=== PATIENT | female | born 1965 | race Caucasian/White ===

== ENCOUNTER 2017-12-12 16:38 | Emergency (ER) | payer OTHER ==
[~2017-12-12] VITALS: Ht 162.6 cm; Wt 96.6 kg
[2017-12-12] MEDS ORDERED: ESTRACE0.5 MG PO (16:51)
[2017-12-12] MEDS ORDERED: METFORMIN HCL500 MG PO (16:52)
[2017-12-12] MEDS ORDERED: SYNTHROID75 MCG PO (16:52)
[2017-12-12] MEDS ORDERED: ROBAXIN 750 MG750 M1 PO (17:36)
[2017-12-12] MEDS ORDERED: HYDROCODONE-AP1 EAC6 PO (17:47)
[2017-12-12 18:00] VITALS: BP 137/87
== END 2017-12-12 18:08 | disposition home or self-care (01) ==
LOC: M.ERS 16:38
DX: M54.2 Cervicalgia (principal); M54.6 Pain in thoracic spine; E03.9 Hypothyroidism, unspecified; Z90.710 Acquired absence of both cervix and uterus; Z88.7 Allergy status to serum and vaccine; Z91.012 Allergy to eggs